=== PATIENT | male | born 1965 | race Caucasian/White ===

== ENCOUNTER 2023-07-19 | Outpatient (CLI) | payer OTHER | END 2023-07-19 07:54 | disposition home or self-care (01) | DX: R97.20 Elevated prostate specific antigen [PSA] (principal); N40.2 Nodular prostate without lower urinary tract symptoms ==

== ENCOUNTER 2024-01-26 13:31 | Outpatient (CLI) | payer OTHER | END 2024-01-26 13:32 | disposition home or self-care (01) | LOC: CSHULT 13:31 | PROVIDERS: ATTEND Psychiatry & Neurology Neurology | DX: R55 Syncope and collapse (principal); I67.82 Cerebral ischemia | CPT/HCPCS: 70553; 76376; 93880 ==